=== PATIENT | female | born 1990 | race Two or more races ===

== ENCOUNTER 2018-10-23 10:24 | Day surgery (SDC) | payer SELFPAY ==
[2018-10-23] MEDS ORDERED: fentaNYL 100 MCG/2 ML SDV IV ONE (10:25)
[2018-10-23] MEDS ORDERED: Dexamethasone 4 MG/ML SDV IV ONE (10:25)
[2018-10-23] MEDS ORDERED: Ondansetron 4 MG/2 ML SDV IV ONE (10:25)
[2018-10-23] MEDS ORDERED: Midazolam 1 MG/ML 2 ML SDV IV ONE (10:25)
[2018-10-23] MEDS ORDERED: Propofol 200 MG/20 ML SDV IV ONE (10:25)
[2018-10-23] MEDS ORDERED: Lidocaine 2% 20 ML MDV INJECT ONE (10:25)
[2018-10-23] MEDS ORDERED: Ketorolac 30 MG/ML SDV IVPUSH ONE (10:25)
[2018-10-23] MEDS ORDERED: Ferric Subsulfate Topical Soln 8 GM (8 ML) Bottle ONE ×2 (10:54)
[2018-10-23] MEDS ORDERED: Lactated Ringers 1,000 ML IV SCH (11:15)
[2018-10-23] MEDS ORDERED: ceFAZolin 2 GM in Premix Bag 1 BAG IV ONE (12:00)
[2018-10-23] MEDS ORDERED: Ferric Subsulfate Topical Soln 8 GM (8 ML) Bottle TOP ONE (12:40)
[2018-10-23 16:10] VITALS: BP 112/67
--- NOTE | 2018-10-24 11:20 | OR ---
DATE: 10/23/2018 PREOPERATIVE DISCUSSION: Her preoperative update history and physical has been done on 10/23/2018. The patient does tell me that she does absolutely definitely want to have her IUD removed. I had told her that we actually could do the LEEP procedure around the filaments to preserve the IUD if she wanted. I also had advised her that we prefer that she not get for about a year after the LEEP procedure. She states that she and her will use condom and barrier methods, and she absolutely urges me to please remove the IUD in the operating room, and we therefore will definitely comply with that. 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 OPERATIONS PERFORMED: 1. Examination under anesthesia with removal of IUD and colposcopy. 2. Loop electrosurgical excision procedure with endocervical curettage. 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 ANESTHESIA: General. ESTIMATED BLOOD LOSS: 35 mL. COMPLICATIONS: None. DESCRIPTION OF THE PROCEDURE: After the induction of general anesthesia and with the patient carefully examined with bimanual exam in the operating room, and this revealed a normal-size uterus and no adnexal masses. The patient does have a large cervix. Vaginal canal and vulvar area are negative. Now, during this vaginal exam, I did remove her IUD as she has urged me and instructed me to do. Now, colposcopic exam is done. The cervix is bathed with dilute acetic acid. This is a large cervix, and all of her transformation zone is visualized. There is an island of white epithelium at approximately 1 o'clock to 2 o'clock on the cervix and also an area of possible early punctation down at about 5 o'clock to 6 o'clock on the ectocervix. The Lugol iodine is also abundantly and carefully applied to the cervix. Also, the vaginal sidewalls and surrounding areas to the cervix are bathed with Lugol iodine. At this time, colposcopy is also done again, and there actually is no area of white or non uptake seen after the application of Lugol iodine. Now, the patient is readied for LEEP procedure using a carbonized speculum with smoke evacuator. A single-tooth tenaculum is attached slightly higher above the anterior lip of the cervix. Now, the 20 x 15 mm large electrode is chosen, and using the cautery unit set at 50 and 50 blended current, the LEEP specimen is now removed. The first portion to come free is the anterior lip or portion of the cervix, and then we have completed and followed on through with the second portion getting the posterior or bottom lip of the cervix. These 2 specimens were actually removed separately. Great caution was taken to make sure that we do not go too deep into the tissues, but also we have gone deep enough to be appropriate for her clinical circumstances. Now, the endocervix is very closely inspected. I did a very thorough endocervical curettage to make sure that no dysplasia or other abnormal tissue higher in the canal is missed. These were submitted as specimen #3. Now, using the ball electrode and regular electrocautery, several small bleeders were electrocoagulated. Monsel solution was abundantly applied to the surgical area. Hemostasis is complete. Estimated blood loss is approximately 35 mL for the entire procedure. All of the instruments are now removed. We have double- checked the labeling of our surgical specimens, and these will be submitted to Pathology. The routine followup instructions were given to the patient preoperatively of course as well as to her . They will certainly call me if any questions or problems whatsoever in the postoperative period. We will be keeping in contact with the patient next week also regarding her pathology report. Sponge and instrument count was reported as correct also. The patient has tolerated the procedure well and went to the recovery room in good condition. She was also given 2 g of Ancef preoperatively. [facility] /[id number]
== END 2018-10-23 15:44 | disposition home or self-care (01) ==
LOC: DL.SDS 10:24 → EDSTATUS 12:00 → DL.SDS 15:44
PROVIDERS: ATTEND Obstetrics & Gynecology
DX: D06.0 Carcinoma in situ of endocervix (principal); R87.810 Cervical high risk human papillomavirus (HPV) DNA test positive; N72 Inflammatory disease of cervix uteri
CPT/HCPCS: 00940; 81025; J0690; J1100; J1885; J2250; J2405; J2704; J3010; J7120

== ENCOUNTER 2019-05-03 10:55 | Emergency (ER) | payer SELFPAY ==
[2019-05-03 11:08] VITALS: BP 114/72
--- NOTE | 2019-05-03 11:28 | EDM.PDOC ---
ED HPI GENERAL MEDICAL PROBLEM - General Chief Complaint: Abdominal Pain Stated Complaint: PAIN ON RIGHT SIDE Time Seen by Provider: 05/03/19 11:22 Source of Information: Reports: Patient, RN, RN Notes Reviewed History Limitations: Reports: No Limitations - History of Present Illness INITIAL COMMENTS - FREE TEXT/NARRATIVE: Pt to ER with c/o RLQ pain. Patient states the pain began last evening. States she has not taken anything for the pain as she has not eaten anything. Patient admits to some nausea, but denies vomiting. Admits she still has her appendix. LMP first week in April, currently taking Oral contraceptives. Admits to fever 2 days ago. States she has been having some diarrhea. Last normal BM was Friday. Onset: Sudden Duration: Constant Location: Reports: Abdomen Quality: Reports: Sharp, Stabbing Severity: Moderate Improves with: Reports: None Worsens with: Reports: None Associated Symptoms: Reports: Fever/Chills, Loss of Appetite, Nausea/Vomiting Right Lower Abdomen Pain Score (Numeric/FACES): 9 - Related Data Allergies Allergy/AdvReac Type Severity Reaction Status Date / Time No Known Allergies Allergy Verified 10/23/18 10:41 Home Meds: Home Meds Ibuprofen 200 mg PO DAILY 10/22/18 [History] Past Medical History HEENT History: Reports: None Cardiovascular History: Reports: None Respiratory History: Reports: None Gastrointestinal History: Reports: PUD Other Gastrointestinal History: lactose intolerant Genitourinary History: Reports: None 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 Pap to be repeat after delivery, Leep surgury Musculoskeletal History: Reports: Other (See Below) Other Musculoskeletal History: Carpal Tunnel right Neurological History: Reports: None Psychiatric History: Reports: None Endocrine/Metabolic History: Reports: None Hematologic History: Reports: Anemia Immunologic History: Reports: None Oncologic (Cancer) History: Reports: None Dermatologic History: Reports: None - Infectious Disease History Infectious Disease History: Reports: Chicken Pox - Past Surgical History Head Surgeries/Procedures: Reports: None HEENT Surgical History: Reports: None Cardiovascular Surgical History: Reports: None GI Surgical History: Reports: None Female Surgical History: Reports: None Musculoskeletal Surgical History: Reports: None Dermatological Surgical History: Reports: None Social & Family History - Family History Family Medical History: Noncontributory HEENT: - Tobacco Use Smoking Status *Q: Never Smoker Second Hand Smoke Exposure: No - Caffeine Use Caffeine Use: Reports: Coffee Caffeine Use Comment: 1 cup daily - Recreational Drug Use Recreational Drug Use: No ED ROS GENERAL - Review of Systems Review Of Systems: ROS reveals no pertinent complaints other than HPI. ED EXAM, GI/ABD - Physical Exam Exam: See Below Exam Limited By: No Limitations General Appearance: Alert, WD/WN, No Apparent Distress Eyes: Bilateral: Normal Appearance, EOMI Ears: Normal External Exam, Hearing Grossly Normal Nose: Normal Inspection Throat/Mouth: Normal Inspection, Normal Voice, No Airway Compromise Head: Atraumatic, Normocephalic Neck: Normal Inspection Respiratory/Chest: No Respiratory Distress, Lungs Clear, Normal Breath Sounds, No Accessory Muscle Use, Chest Non-Tender Cardiovascular: Normal Peripheral Pulses, Regular Rate, Rhythm, No Edema, No Gallop, No JVD, No Murmur, No Rub GI/Abdominal Exam: Normal Bowel Sounds, Soft, Tender (RLQ) (Female) Exam: Deferred Rectal (Female) Exam: Deferred Back Exam: Normal Inspection, Full Range of Motion, NT Extremities: Normal Inspection, Normal Range of Motion, Non-Tender, Normal Capillary Refill, No Pedal Edema Neurological: Alert, Oriented, CN II-XII Intact, Normal Cognition, Normal Gait, Normal Reflexes, No Motor/Sensory Deficits Psychiatric: Normal Affect, Normal Mood Skin Exam: Warm, Dry, Intact, Normal Color, No Rash Lymphatic: No Adenopathy Course - Vital Signs Last Recorded V/S: Last Vital Signs Temp 97.3 F 05/03/19 11:03 Pulse 38 L 05/03/19 11:03 Resp 16 05/03/19 11:03 BP 114/72 05/03/19 11:03 Pulse Ox 100 05/03/19 11:03 - Orders/Labs/Meds Orders: Active Orders 24 hr Category Date Time Status CULTURE URINE [RM] Stat Lab 05/03/19 11:51 Received Labs: Laboratory Tests 05/03/19 05/03/19 05/03/19 Range/Units 11:36 11:36 11:51 WBC 8.8 (5.0-10.0) 10^3/uL RBC 5.36 (4.2-5.4) 10^6/uL Hgb 14.9 D (12.0-16.0) g/dL Hct 44.7 (37.0-47.0) % MCV 83.4 D (80-100) fL MCH 27.8 (27.0-34.0) pg MCHC 33.3 (33.0-35.0) g/dL Plt Count 300 D (150-450) 10^3/uL Neut % (Auto) 62.2 (42.2-75.2) % Lymph % (Auto) 30.4 (20.5-50.1) % [place] % (Auto) 5.3 (2-8) % Eos % (Auto) 1.8 (1.0-3.0) % Baso % (Auto) 0.3 (0.0-1.0) % Sodium 138 (135-145) mmol/L Potassium 3.8 (3.6-5.0) mmol/L Chloride 103 (101-111) mmol/L Carbon Dioxide 25.0 (21.0-31.0) mmol/L Anion Gap 13.8 BUN 7 (7-18) mg/dL Creatinine 0.6 (0.6-1.3) mg/dL Est Cr Clr Drug Dosing 101.16 mL/min Estimated GFR (MDRD) > 60 BUN/Creatinine Ratio 11.66 Glucose 80 (74-105) mg/dL Calcium 9.4 (8.4-10.2) mg/dl Total Bilirubin 0.7 (0.2-1.0) mg/dL AST 20 (10-42) IU/L ALT 23 (10-60) IU/L Alkaline Phosphatase 55 (42-121) IU/L Total Protein 7.7 (6.7-8.2) g/dl Albumin 4.2 (3.2-5.5) g/dl Globulin 3.5 Albumin/Globulin Ratio 1.20 Urine Color Yellow (YELLOW) Urine Appearance Slightly cloudy (CLEAR) Urine pH 7.0 (5.0-9.0) Ur Specific [place] 1.010 (1.005-1.030) Urine Protein Negative (NEGATIVE) Urine Glucose (UA) Negative (NEGATIVE) Urine Ketones Negative (NEGATIVE) Urine Occult Blood Negative (NEGATIVE) Urine Nitrite Negative (NEGATIVE) Urine Bilirubin Negative (NEGATIVE) Urine Urobilinogen 0.2 (0.2-1.0) mg/dL Ur Leukocyte Esterase Trace H (NEGATIVE) Urine RBC 0-5 /HPF Urine WBC 0-5 (0-5/HPF) /HPF Ur Epithelial Cells Rare (NOT SEEN) /HPF Urine Bacteria Rare (0-FEW/HPF) /HPF Urine Mucus Rare (NOT SEEN) /LPF Urine HCG, Qual 05/03/19 Range/Units 11:51 WBC (5.0-10.0) 10^3/uL RBC (4.2-5.4) 10^6/uL Hgb (12.0-16.0) g/dL Hct (37.0-47.0) % MCV (80-100) fL MCH (27.0-34.0) pg MCHC (33.0-35.0) g/dL Plt Count (150-450) 10^3/uL Neut % (Auto) (42.2-75.2) % Lymph % (Auto) (20.5-50.1) % [place] % (Auto) (2-8) % Eos % (Auto) (1.0-3.0) % Baso % (Auto) (0.0-1.0) % Sodium (135-145) mmol/L Potassium (3.6-5.0) mmol/L Chloride (101-111) mmol/L Carbon Dioxide (21.0-31.0) mmol/L Anion Gap BUN (7-18) mg/dL Creatinine (0.6-1.3) mg/dL Est Cr Clr Drug Dosing mL/min Estimated GFR (MDRD) BUN/Creatinine Ratio Glucose (74-105) mg/dL Calcium (8.4-10.2) mg/dl Total Bilirubin (0.2-1.0) mg/dL AST (10-42) IU/L ALT (10-60) IU/L Alkaline Phosphatase (42-121) IU/L Total Protein (6.7-8.2) g/dl Albumin (3.2-5.5) g/dl Globulin Albumin/Globulin Ratio Urine Color (YELLOW) Urine Appearance (CLEAR) Urine pH (5.0-9.0) Ur Specific [place] (1.005-1.030) Urine Protein (NEGATIVE) Urine Glucose (UA) (NEGATIVE) Urine Ketones (NEGATIVE) Urine Occult Blood (NEGATIVE) Urine Nitrite (NEGATIVE) Urine Bilirubin (NEGATIVE) Urine Urobilinogen (0.2-1.0) mg/dL Ur Leukocyte Esterase (NEGATIVE) Urine RBC /HPF Urine WBC (0-5/HPF) /HPF Ur Epithelial Cells (NOT SEEN) /HPF Urine Bacteria (0-FEW/HPF) /HPF Urine Mucus (NOT SEEN) /LPF Urine HCG, Qual Negative Departure - Departure Time of Disposition: 12:25 Disposition: Home, Self-Care 01 Condition: Good Clinical Impression: Gastroenteritis, Abdominal cramping - Discharge Information *PRESCRIPTION DRUG MONITORING PROGRAM REVIEWED*: No *COPY OF PRESCRIPTION DRUG MONITORING REPORT IN PATIENT SOUMYA: No Instructions: Viral Gastroenteritis, Adult, [id number], Food Choices to Help Relieve Diarrhea, Adult, Abdominal Pain, Adult, [id number] Forms: ED Department Discharge Additional Instructions: Drink plenty of water May use Tylenol and/or Ibuprofen as directed for pain Follow up with your primary care facility if no improvement - My Orders Last 24 Hours: My Active Orders 05/03/19 11:51 CULTURE URINE [RM] Stat - Assessment/Plan Last 24 Hours: My Active Orders 05/03/19 11:51 CULTURE URINE [RM] Stat
[2019-05-03 12:02] LABS: ANION GAP 13.8; CHLORIDE,CL 103 mmol/L (101-111); SODIUM,NA 138 mmol/L (135-145)
== END 2019-05-03 12:37 | disposition home or self-care (01) ==
LOC: DL.ED 10:55
DX: K52.9 Noninfective gastroenteritis and colitis, unspecified (principal)
CPT/HCPCS: 36415; 80053; 81001; 81025; 85025; 87086; 87088; 87186; 99284

== ENCOUNTER 2020-01-26 12:55 | Emergency (ER) | payer BC ==
--- NOTE | 2020-01-26 13:19 | EDM.PDOC ---
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 Patient states she is 10 weeks , LMP October 31, 2019. Patient states this is her second , she has 1 living child. She states he has recently been treated for a vaginal yeast infection with a 7-day course of Monistat. Patient states wearing a panty liner but has not had to change it. States when she wipes there is blood and "small chunks of blood". 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 Pap to be repeat after delivery, Leep surgury Musculoskeletal History: Reports: Other (See Below) Other Musculoskeletal History: Carpal Tunnel right Neurological History: Reports: None Psychiatric History: Reports: None Endocrine/Metabolic History: Reports: None Hematologic History: Reports: Anemia Immunologic History: Reports: None Oncologic (Cancer) History: Reports: None Dermatologic History: Reports: None - Infectious Disease History Infectious Disease History: Reports: Chicken Pox - Past Surgical History Head Surgeries/Procedures: Reports: None HEENT Surgical History: Reports: None Cardiovascular Surgical History: Reports: None GI Surgical History: Reports: None Female Surgical History: Reports: None Musculoskeletal Surgical History: Reports: None Dermatological Surgical History: Reports: None Social & Family History - Family History Family Medical History: Noncontributory HEENT: - Tobacco Use Smoking Status *Q: Never Smoker Second Hand Smoke Exposure: No - Caffeine Use Caffeine Use: Reports: None Caffeine Use Comment: 1 cup daily - Recreational Drug Use Recreational Drug Use: No ED ROS GENERAL - Review of Systems Review Of Systems: Comprehensive ROS is negative, except as noted in HPI. ED EXAM - Physical Exam Exam: See Below Exam Limited By: No Limitations General Appearance: Alert, No Apparent Distress, Anxious Eye Exam: Bilateral Eye: EOMI, Normal Inspection Ears: Normal External Exam, Hearing Grossly Normal Nose: Normal Inspection Throat/Mouth: Normal Inspection, Normal Voice, No Airway Compromise Head: Atraumatic, Normocephalic Neck: Normal Inspection, Supple, Non-Tender, Full Range of Motion Respiratory/Chest: No Respiratory Distress, Lungs Clear, Normal Breath Sounds, No Accessory Muscle Use, Chest Non-Tender Cardiovascular: Normal Peripheral Pulses, Regular Rate, Rhythm, No Edema, No Gallop, No JVD, No Murmur, No Rub GI/Abdominal Exam: Normal Bowel Sounds, Soft, Non-Tender Rectal Exam: Deferred (Female) Exam: Normal External Exam, Vaginal Discharge (minimal to moderate amount of dark red blood in the vaginal vault, with "chunks", most likely from the monistat). No: Cervical Dilatation Movement: Not Appreciated Back Exam: Normal Inspection Extremities: Normal Inspection, Normal Range of Motion, Non-Tender, No Pedal Edema, Normal Capillary Refill Neurological: Alert, Oriented, CN II-XII Intact, Normal Cognition, Normal Gait, Normal Reflexes, No Motor/Sensory Deficits Psychiatric: Normal Affect, Normal Mood, Anxious, Tearful Skin Exam: Warm, Dry, Intact, Normal Color, No Rash Lymphatic: No Adenopathy Course - Vital Signs Last Recorded V/S: Last Vital Signs Temp 97.8 F 01/26/20 15:30 Pulse 91 01/26/20 15:30 Resp 16 01/26/20 15:30 BP 106/68 01/26/20 15:30 Pulse Ox 100 01/26/20 15:30 - Orders/Labs/Meds Orders: Active Orders 24 hr Category Date Time Status CULTURE URINE [RM] Stat Lab 01/26/20 13:30 Received Labs: Laboratory Tests 01/26/20 01/26/20 01/26/20 Range/Units 13:28 13:28 13:28 WBC 9.9 (5.0-10.0) 10^3/uL RBC 4.83 (4.2-5.4) 10^6/uL Hgb 13.9 (12.0-16.0) g/dL Hct 40.7 (37.0-47.0) % MCV 84.3 (80-100) fL MCH 28.8 (27.0-34.0) pg MCHC 34.2 (33.0-35.0) g/dL Plt Count 302 (150-450) 10^3/uL Neut % (Auto) 63.8 (42.2-75.2) % Lymph % (Auto) 27.5 (20.5-50.1) % [place] % (Auto) 6.0 (2-8) % Eos % (Auto) 2.5 (1.0-3.0) % Baso % (Auto) 0.2 (0.0-1.0) % Sodium 138 (136-145) mmol/L Potassium 3.6 (3.5-5.1) mmol/L Chloride 101 (98-107) mmol/L Carbon Dioxide 27 (21-32) mmol/L Anion Gap 13.6 H (7-13) mEq/L BUN 7 (7-18) mg/dL Creatinine 0.65 (0.55-1.02) mg/dL Est Cr Clr Drug Dosing 93.38 mL/min Estimated GFR (MDRD) > 60 BUN/Creatinine Ratio 10.8 (No establ ref range) Glucose 85 (74-99) mg/dL Calcium 9.7 (8.5-10.1) mg/dL Total Bilirubin 0.3 (0.2-1.0) mg/dL AST 20 (15-37) U/L ALT 28 (14-59) U/L Alkaline Phosphatase 58 (46-116) U/L Total Protein 7.9 (6.4-8.2) g/dL Albumin 4.0 (3.4-5.0) g/dL Globulin 3.9 Albumin/Globulin Ratio 1.0 HCG, Quant 930 H (0-6) mIU/mL Urine Color (YELLOW) Urine Appearance (CLEAR) Urine pH (5.0-9.0) Ur Specific [place] (1.005-1.030) Urine Protein (NEGATIVE) Urine Glucose (UA) (NEGATIVE) Urine Ketones (NEGATIVE) Urine Occult Blood (NEGATIVE) Urine Nitrite (NEGATIVE) Urine Bilirubin (NEGATIVE) Urine Urobilinogen (0.2-1.0) mg/dL Ur Leukocyte Esterase (NEGATIVE) Urine RBC /HPF Urine WBC (0-5/HPF) /HPF Ur Epithelial Cells (NOT SEEN) /HPF Urine Bacteria (0-FEW/HPF) /HPF Urine Mucus (NOT SEEN) /LPF 01/26/20 Range/Units 13:30 WBC (5.0-10.0) 10^3/uL RBC (4.2-5.4) 10^6/uL Hgb (12.0-16.0) g/dL Hct (37.0-47.0) % MCV (80-100) fL MCH (27.0-34.0) pg MCHC (33.0-35.0) g/dL Plt Count (150-450) 10^3/uL Neut % (Auto) (42.2-75.2) % Lymph % (Auto) (20.5-50.1) % [place] % (Auto) (2-8) % Eos % (Auto) (1.0-3.0) % Baso % (Auto) (0.0-1.0) % Sodium (136-145) mmol/L Potassium (3.5-5.1) mmol/L Chloride (98-107) mmol/L Carbon Dioxide (21-32) mmol/L Anion Gap (7-13) mEq/L BUN (7-18) mg/dL Creatinine (0.55-1.02) mg/dL Est Cr Clr Drug Dosing mL/min Estimated GFR (MDRD) BUN/Creatinine Ratio (No establ ref range) Glucose (74-99) mg/dL Calcium (8.5-10.1) mg/dL Total Bilirubin (0.2-1.0) mg/dL AST (15-37) U/L ALT (14-59) U/L Alkaline Phosphatase (46-116) U/L Total Protein (6.4-8.2) g/dL Albumin (3.4-5.0) g/dL Globulin Albumin/Globulin Ratio HCG, Quant (0-6) mIU/mL Urine Color Yellow (YELLOW) Urine Appearance Slightly cloudy (CLEAR) Urine pH 7.0 (5.0-9.0) Ur Specific [place] 1.025 (1.005-1.030) Urine Protein Negative (NEGATIVE) Urine Glucose (UA) Negative (NEGATIVE) Urine Ketones Negative (NEGATIVE) Urine Occult Blood Moderate H (NEGATIVE) Urine Nitrite Negative (NEGATIVE) Urine Bilirubin Negative (NEGATIVE) Urine Urobilinogen 0.2 (0.2-1.0) mg/dL Ur Leukocyte Esterase Trace H (NEGATIVE) Urine RBC 0-5 /HPF Urine WBC 0-5 (0-5/HPF) /HPF Ur Epithelial Cells Rare (NOT SEEN) /HPF Urine Bacteria Few (0-FEW/HPF) /HPF Urine Mucus Not seen (NOT SEEN) /LPF - Radiology Interpretation Free Text/Narrative:: US: Midline uterus is enlarged with a clearly demonstrated central gestational sac that has a poorly defined chronic rind. Definite pole identified with a crown-rump length measurements 2.14 cm proximates at 8 weeks 6-day gestation however no motion or cardiac activity recorded at real-time exam i.e. demise. Placenta appears to be formed posteriorly. No sign of retrosternal hematoma or abruption. Normal amniotic fluid volume. Symmetric normal-appearing ovaries no adnexal mass lesion. No free fluid in the cul-de-sac. Conclusion: demise See rad report Departure - Departure Time of Disposition: 15:24 Disposition: Home, Self-Care 01 Condition: Fair Clinical Impression: Incomplete - Discharge Information *PRESCRIPTION DRUG MONITORING PROGRAM REVIEWED*: No *COPY OF PRESCRIPTION DRUG MONITORING REPORT IN PATIENT SOUMYA: No Instructions: Miscarriage, [id number] Forms: ED Department Discharge Additional Instructions: Monitor for heavy bleeding May use Tylenol as directed for pain Follow up with your primary care facility If you develop fever or chills, increased bleeding or cramping, return to the ER Sepsis Event Note - Evaluation Sepsis Screening Result: No Definite Risk - Focused Exam Vital Signs: Vital Signs Temp Pulse Resp BP BP Pulse Ox 01/26/20 15:30 97.8 F 91 16 106/68 100 01/26/20 13:01 97.8 F 70 16 116/78 100 Date Exam was Performed: 01/26/20 Time Exam was Performed: 17:36 - My Orders Last 24 Hours: My Active Orders 01/26/20 13:30 CULTURE URINE [RM] Stat - Assessment/Plan Last 24 Hours: My Active Orders 01/26/20 13:30 CULTURE URINE [RM] Stat
[2020-01-26 14:05] LABS: ANION GAP 13.6 mEq/L (7-13); CHLORIDE,CL 101 mmol/L (98-107); SODIUM,NA 138 mmol/L (136-145)
--- NOTE | 2020-01-26 15:24 | US ---
EXAMINATION: OB Ltd 1 or More Fetus SEX: Female AGE: 29 years CLINICAL HISTORY: 29-year-old gravid" female with vaginal bleeding at 10 weeks (serum hCG 930) LMP 31 October 2019. Interpretation: Abnormal. Midline uterus is enlarged with a clearly demonstrated central gestational sac that has a poorly defined chorionic "rind". Definite pole identified with crown-rump length measurement 2.14 cm approximates an 8 week 6 day gestation however no motion or cardiac activity recorded at real-time exam i.e. demise. Placenta appears to be formed posteriorly. No sign of retrosternal hematoma or abruption. Normal amniotic fluid volume. Symmetric normal appearing ovaries. No adnexal mass lesion. No free fluid in the cul-de-sac. Conclusion: DEMISE.
[2020-01-26 15:31] VITALS: BP 106/68; PULSE 91
== END 2020-01-26 15:30 | disposition home or self-care (01) ==
LOC: DL.ED 12:55
DX: O03.4 Incomplete spontaneous abortion without complication (principal)
CPT/HCPCS: 36415; 76815; 80053; 81001; 84702; 85025; 87086; 87088; 87186; 87210; 99284-25

== ENCOUNTER 2021-03-24 20:51 | Inpatient (IN) | payer BC ==
[2021-03-24] MEDS ORDERED: Lactated Ringers 1,000 ML IV ONE (22:14)
[2021-03-24] MEDS ORDERED: Ondansetron 4 MG/2 ML SDV IVPUSH PRN ×2 (22:14)
[2021-03-24] MEDS ORDERED: Tranexamic Acid 1,000 MG in Sodium Chloride 0.9% 100 ML IV PRN (22:14)
[2021-03-24] MEDS ORDERED: Sodium Chloride 0.9% 10 ML Syringe FLUSH PRN (22:14)
[2021-03-24] MEDS ORDERED: Penicillin G Potassium 5 MILLUNITS in Sodium Chloride 0.9% 100 ML IV ONE (22:14)
[2021-03-24] MEDS ORDERED: Naloxone 2 MG/2 ML Syringe IVPUSH PRN (22:14)
[2021-03-24] MEDS ORDERED: fentaNYL 100 MCG/2 ML SDV IVPUSH PRN (22:14)
[2021-03-24] MEDS ORDERED: Methylergonovine 0.2 MG/1 ML Amp IM PRN (22:14)
[2021-03-24] MEDS ORDERED: Carboprost Tromethamine 250 MCG/1 ML Amp IM PRN (22:14)
[2021-03-24] MEDS ORDERED: Promethazine 25 MG/ML SDV IM PRN (22:14)
[2021-03-24] MEDS ORDERED: Lidocaine 1% 30 ML SDV INJECT PRN (22:14)
[2021-03-24] MEDS ORDERED: Misoprostol 400 MCG (4 X 100 MCG TAB) RECTAL PRN (22:14)
[2021-03-24] MEDS ORDERED: Acetaminophen 325 MG Tab PO PRN (22:14)
[2021-03-24] MEDS ORDERED: ePHEDrine 50 MG/ML SDV IVPUSH PRN (22:14)
[2021-03-24] MEDS ORDERED: Oxytocin/Normal Saline 30 UNIT/500 ML BAG IV SCH (22:15)
[2021-03-24] MEDS ORDERED: Lactated Ringers 500 ML IV SCH ×2 (22:15)
--- NOTE | 2021-03-24 23:30 | HP ---
CHIEF COMPLAINT: Loss of mucus plug. HISTORY OF PRESENT ILLNESS: A 31-year-old 3, para 1-0-1-1, currently at 38-4/7 weeks of her , presents to Labor and Delivery reporting loss of her mucus plug earlier today. This was not accompanied by leakage of fluid or vaginal bleeding. movement has continued to be good. No symptoms of preeclampsia. Denies really feeling her contractions much when she first arrives. By the time I come in to see her, she reports they are starting to get a little bit stronger. Her blood sugars have remained under excellent control and she has been overall doing well. PAST MEDICAL HISTORY: DANISH 3, history of chickenpox as a child. SURGICAL HISTORY: LEEP procedure in October 2018. FAMILY HISTORY: Mother, father, sister, 2 brothers, all alive and well. Maternal grandmother alive and has some skin problems. Maternal grandfather , had asthma. Paternal grandmother alive and well. Paternal grandfather with no known medical problems. There is a paternal aunt who had triplets. Family history is negative for defects, cystic fibrosis, seizures, bleeding problems, clotting disorders, and anesthesia problems. SOCIAL HISTORY: The patient currently works at [email or web address]. , Gurwinder, is working with his uncle, doing construction. They do have a cat, but it lives mostly outside of the house. OBSTETRICAL HISTORY: 1. Date 10/03/2016, 37 weeks 4 days gestation, vaginal delivery, male , weighing 2935 g, 6 pounds 7.5 ounces. She came in with prolonged premature rupture of membranes and was therefore induced and had an intrathecal for anesthesia. Baby's scores were 6 and 7. Labor was 18 hours, stage I; 1 hour, stage II. 2. 01/2020, 8 weeks 6 days gestation, spontaneous . 3. Her current . LABS: Blood type B positive. Antibody screen negative. Rubella immune. Syphilis negative. HIV negative. Gonorrhea and chlamydia negative. TSH normal at 0.62. Treated for yeast in 03/2021. Glucose tolerance test abnormal at 147; 3 hour test results, 87, 147, 158, and 137 respectively and initially diet controlled, but did end up needing metformin and doing quite well with all of her sugars being controlled at her last visit. ALLERGIES: No known drug allergies. MEDICATIONS: vitamin 1 daily, metformin 500 mg twice daily, iron 325 mg daily, vitamin C 500 mg daily, Tylenol as needed for pain or discomfort. REVIEW OF SYSTEMS: As per the history of present illness. No headaches, blurry vision, chest pain, shortness of breath, nausea, vomiting, right upper quadrant pain, diarrhea, constipation, acute skin changes. Overall reports she is in her usual state of health. OBJECTIVE: Vital Signs: Blood pressure initial 130/84, came down to 116/75. Pulse of 80, temperature 98.6, RR of 16. HEENT: Grossly unremarkable. Neck: Supple without adenopathy. Heart: Regular rate and rhythm without murmur. Lungs: Clear to auscultation bilaterally. Abdomen: Gravid, soft, nontender. Positive bowel sounds. heart tones tracing at 140 beats per minute at baseline with good reactivity. No decelerations. Contractions are every 2 to 3 minutes on the monitor, overall category 1. : Cervical exam per nurse is 3 cm dilated, 75% effaced, -2 station, mid position. Bag of water intact. Extremities: No edema, erythema, or tenderness. Neurological: No focal findings, no clonus, and regular reflexes. ASSESSMENT: 1. A 38 and 4/7 weeks intrauterine , possibly in early labor. 2. 3, para 1-0-1-1. 3. Gestational diabetes, well controlled with oral medications. 4. Anemia of . 5. History of loop electrosurgical excision procedure. 6. History of one miscarriage. 7. Group B strep positive with plan for prophylaxis in this labor. PLAN: At this time, patient is going to be monitored for a couple of hours and see if she makes cervical change and progresses into active labor. If she does not, anticipate that she will be discharged home, but may present again within the next 24 hours in labor and would anticipate that this H and P can simply be updated. The patient's questions were answered. Plans have been well communicated with nursing staff and they are aware of the plan and we will recheck the patient's cervix in a couple of hours, sooner if clinically indicated. [facility] /[id number] [facility] MEDICAL CENTERBetty
[2021-03-25] MEDS: Lactated Ringers 1,000 ML IV SCH ×4 (00:20→09:30)
[2021-03-25] MEDS: Penicillin G Potassium 3 MILLUNITS in Sodium Chloride 0.9% 100 ML IV SCH ×3 (04:40→13:35)
[2021-03-25] MEDS ORDERED: EPINEPHrine 1 MG/ML SDV ONE ×2 (06:30)
[2021-03-25] MEDS ORDERED: fentaNYL 100 MCG/2 ML SDV ONE (06:30)
[2021-03-25] MEDS ORDERED: fentaNYL 100 MCG/2 ML SDV ITHECAL ONE (06:30)
--- NOTE | 2021-03-25 07:27 | PCM.PRNOTE ---
- Free Text/Narrative Note: Requested to provide analgesia to full term patient in severe pain. Upon entering the room, patient is sitting on edge of bed complaining of severe abdominal/pelvic pain and discomfort. Procedure was discussed with patient including adverse outcomes and expectations. Pt consented to analgesia, SAB/IT. Pt placed into a proper sitting position. Landmarks for SAB/IT were identified and marked. Hands were washed and appropriate PPE was applied. Back was prepped with betadine x3. A sterile, transparent, fenestrated drape was applied. Excess betadine was removed. Using 3 mL of a 1% lidocaine solution, a skin wheel was placed at the L2/L3 interspace. A 24 ga (4 inch) Pencan spinal needle was inserted until positive for CSF. Negative for heme or paresthesias. Injected fentanyl 15 mcg, sufentanil 20 mcg, and 6 mg of a 0.75% bupivacaine solution with an epi wash. Pt was placed left lateral tilt position for approximately 20 minutes. There were zero complications or adverse outcomes. Will continue to monitor. Procedure Date & Time: 03/25/21 [id number]
[2021-03-25] MEDS ORDERED: Benzocaine/Menthol 20%-0.5% Spray 78 GM Cannister TOP PRN (10:20)
[2021-03-25] MEDS ORDERED: Docusate Sodium 100 MG Cap PO PRN (10:20)
[2021-03-25] MEDS ORDERED: Simethicone 80 MG Tab.Chew PO PRN (10:20)
[2021-03-25] MEDS: Ibuprofen 800 MG Tab PO PRN (16:11)
[2021-03-26] MEDS: Ibuprofen 800 MG Tab PO PRN (00:10)
--- NOTE | 2021-03-26 07:44 | DEL ---
DATE: 03/25/2021 PREPROCEDURE DIAGNOSES: 1. 38-5/7 weeks' intrauterine . 2. 3, para 1-0-1-1. 3. Anemia of . 4. Gestational diabetes, well controlled on low-dose metformin. 5. History of loop electrosurgical excision procedure. 6. Group B strep positive, treated in labor. POSTPROCEDURE DIAGNOSES: 1. 38-5/7 weeks' intrauterine . 2. 3, para 2-0-1-2. 3. Anemia of . 4. Gestational diabetes, well controlled on low-dose metformin. 5. History of loop electrosurgical excision procedure. 6. Status post spontaneous vaginal delivery without complications. 7. Group B strep positive, treated in labor. HISTORY: 31-year-old [place] female presented to the hospital with spontaneous onset of labor last night after penicillin started and receiving her intrathecal. Her labor progressed until she had spontaneous rupture of membranes and reached complete dilatation and pushed for approximately one half hour before delivery with details as below. Stage I was approximately 12 hours. DETAILS: The patient in Cristina position, she delivered a viable female infant in the KAMERON position over intact perineum. Baby was dried, stimulated. Mouth and nose were bulb suctioned and baby placed up on mother's abdomen. There was a loose nuchal cord present and that was reduced via somersault maneuver. After a delay, 3-vessel umbilical cord was doubly clamped and cut and placenta then delivered by gentle cord traction and concomitant uterine massage. Straight catheterization was performed with return of 500 mL of urine. We were going to attempt this, but baby started and that obscured the urethra. Labia and vagina were inspected, and there were no lacerations. COMPLICATIONS: None. FINDINGS: Viable female infant. score 8 & 9, and weight 3450g. ESTIMATED BLOOD LOSS: 350 mL. DISPOSITION: Mother and baby to stay in the room to initiate skin to skin and . [facility] /[id number] MTDBetty
[2021-03-26] MEDS ORDERED: Ferrous Sulfate 325 MG Tab PO SCH (08:00)
[2021-03-26] MEDS ORDERED: Prenatal Multivitamin with Calcium/Folic Acid/Iron Tab PO SCH (09:00)
[2021-03-26 09:01] VITALS: BP 114/76; PULSE 74
--- NOTE | 2021-03-26 09:38 | PN ---
DATE: 03/26/2021 SUBJECTIVE: Post vaginal delivery day #1, doing well, ambulating and tolerating regular diet. No chest pain or shortness of breath. Bleeding this morning has slowed down to just some light spotting. No preeclamptic symptoms. No urinary or bowel complaints. seems to be going well, but she is concerned if she is making adequate breast milk supply for her baby. Anticipating discharge home tomorrow in order to ensure support. OBJECTIVE: Vital Signs: Temperature is 98.0, pulse 58, blood pressure 122/72, and respiratory rate of 16. Review of pulse is generally in the 70s. Heart: Regular without murmur. Lungs: Clear to auscultation bilaterally. Abdomen: Soft, nontender. Positive bowel sounds. Fundus firm and below the umbilicus. Extremities: No edema, erythema, or tenderness noted. Pedal pulses strong and equal. LABORATORY DATA: Hemoglobin down to 11.7 from a previous 13.5, platelets down to 181 from 228. ASSESSMENT: 1. Status post vaginal delivery day #1. 2. 3, now para 2-0-1-2. 3. Gestational diabetes, well controlled with metformin, now currently off medications. 4. Anemia of history. 5. Group B streptococcus positive and she was treated during labor. PLAN: Anticipate continued normal care and anticipate discharge home tomorrow as long as all continues to go well. [facility] /[id number]
--- NOTE | 2021-03-28 23:01 | DISCH ---
ADMITTING DIAGNOSES: 1. 38-4/7 weeks' intrauterine . 2. 3, para 1-0-1-1. 3. Anemia of . 4. Gestational diabetes, controlled on 500 mg metformin b.i.d. 5. History of loop electrosurgical excision procedure. 6. Blood type B positive. 7. Group B strep positive. 8. Rubella immune. DISCHARGE DIAGNOSES: 1. 38-4/7 weeks' intrauterine , delivered at 38-5/7 weeks' gestation. 2. 3, now para 2-0-1-2. 3. Status post spontaneous vaginal delivery without complication. 4. Anemia of . 5. Gestational diabetes, controlled on 500 mg metformin b.i.d. 6. History of loop electrosurgical excision procedure. 7. Blood type B positive. 8. Group B strep positive. 9. Rubella immune. PROCEDURES PERFORMED: Intrathecal Pitocin augmentation and spontaneous vaginal delivery. BRIEF HISTORY: 31-year-old female, above-listed diagnoses, presented to the hospital with spontaneous onset of labor. She had about 12 hours of stage I and ruptured approximately 4 hours prior to delivery. She pushed for 30 minutes and there were no complications with delivery. She delivered a baby girl, score of 9 and 9, weight 3450 g, length 50.17 cm. HOSPITAL COURSE: Good. She has been doing well, ambulating, tolerating regular diet. Bleeding has been well controlled. No chest pain or shortness of breath. seems to be going overall fairly well. She has no complaints and requesting discharge home on day #1. DISCHARGE CONDITION: Good. PHYSICAL EXAMINATION: Vital Signs: Temperature is 98.3, pulse 74, blood pressure 114/76, respiratory rate of 16. Heart: Regular without murmur. Lungs: Clear to auscultation bilaterally. Abdomen: Soft, nontender. Positive bowel sounds throughout. Fundus is firm and below the umbilicus. Extremities: Trace edema. No erythema or tenderness noted. LABORATORY DATA: Discharge hemoglobin of 11.7, down from admission of 13.5; discharge platelets 181, down from admission of 228. DISPOSITION: Home with family. MEDICATIONS: Colace 100 mg twice daily as needed for constipation, iron 325 mg once daily for anemia, ibuprofen 800 mg every 8 hours as needed for pain, Tylenol 650 mg every 6 hours as needed for pain, vitamin 1 p.o. daily. FOLLOWUP: She will have a 6-week exam in the office. We will also be able to check on her when she brings her baby in for the 2-day and 2-week well-child checks. INSTRUCTIONS: Routine post delivery instructions for a mother. Questions were answered. [facility] /[id number] JAMESON
== END 2021-03-26 14:25 | disposition home or self-care (01) | DRG 560 ==
LOC: DL.OBCHECK 20:51 → DL.OB 03-25 00:01 → OBSVTOIN 03-25 00:01
PROVIDERS: ADMIT Family Medicine; ATTEND Family Medicine
PROC: 10E0XZZ Delivery of Products of Conception, External Approach (ICD-10-PCS; principal; 2021-03-25)
PROC: 3E0R3BZ Introduction of Anesthetic Agent into Spinal Canal, Percutaneous Approach (ICD-10-PCS; 2021-03-25)
DX: O24.425 Gestational diabetes mellitus in childbirth, controlled by oral hypoglycemic drugs (principal); Z3A.38 38 weeks gestation of pregnancy; Z37.0 Single live birth; O99.02 Anemia complicating childbirth; D64.9 Anemia, unspecified; O99.824 Streptococcus B carrier state complicating childbirth; O69.81X0 Labor and delivery complicated by cord around neck, without compression, not applicable or unspecified; Z20.822 Contact with and (suspected) exposure to COVID-19
CPT/HCPCS: 01967; 36415; 59409; 85027; A9270-GY; J0171; J2405; J2540; J2590; J3010; J7120; U0002

== ENCOUNTER 2023-03-17 18:45 | Emergency (ER) | payer BC, MEDICAID ==
[2023-03-17 19:53] VITALS: PULSE 88
[2023-03-17 21:20] VITALS: BP 123/67
== END 2023-03-17 21:24 | disposition home or self-care (01) ==
LOC: DL.ED 18:45
DX: S63.501A Unspecified sprain of right wrist, initial encounter (principal); X50.1XXA Overexertion from prolonged static or awkward postures, initial encounter; Y92.512 Supermarket, store or market as the place of occurrence of the external cause
CPT/HCPCS: 73110-RT; 99282; 99283

== ENCOUNTER 2024-05-30 03:10 | Emergency (ER) | payer BC ==
[2024-05-30] MEDS: Famotidine 20 MG Tab PO ONE (03:33)
[2024-05-30] MEDS: diphenhydrAMINE 25 MG Tab PO ONE (03:33)
[2024-05-30] MEDS: Dexamethasone 4 MG/ML SDV PO ONE (03:33)
[2024-05-30 03:44] VITALS: BP 130/81
[2024-05-30 03:50] VITALS: PULSE 70
== END 2024-05-30 03:41 | disposition home or self-care (01) ==
LOC: DL.ED 03:10
DX: T78.40XA Allergy, unspecified, initial encounter (principal); Z79.899 Other long term (current) drug therapy
CPT/HCPCS: 99282; A9270; J1100

== ENCOUNTER 2024-09-12 12:17 | Emergency (ER) | payer BC ==
[2024-09-12 12:26] VITALS: BP 119/73; PULSE 111
[2024-09-12] MEDS: Ketorolac 30 MG/ML SDV IM ONE (13:27)
== END 2024-09-12 13:33 | disposition home or self-care (01) ==
LOC: DL.ED 12:17
DX: B34.9 Viral infection, unspecified (principal); R51.9 Headache, unspecified
CPT/HCPCS: 87081; 87428; 87430; 96372; 99284; J1885